=== PATIENT | male | born 1945 | race African-American/Black ===

== ENCOUNTER → 2016-05-21 | Outpatient (RCR) | payer OTHER | END | disposition home or self-care (01) | LOC: PTY 10:00 | DX: I73.9 Peripheral vascular disease, unspecified (principal); I10 Essential (primary) hypertension; E11.9 Type 2 diabetes mellitus without complications; I25.10 Atherosclerotic heart disease of native coronary artery without angina pectoris; Z95.1 Presence of aortocoronary bypass graft; Z85.46 Personal history of malignant neoplasm of prostate; Z90.79 Acquired absence of other genital organ(s); Z88.0 Allergy status to penicillin ==

== ENCOUNTER 2016-05-26 15:57 | Outpatient (RCR) | payer OTHER | END 2016-06-20 | disposition home or self-care (01) | LOC: PTY 15:57 | DX: I73.9 Peripheral vascular disease, unspecified (principal) ==

== ENCOUNTER 2016-06-21 14:36 | Outpatient (RCR) | payer OTHER | END 2016-07-21 | disposition home or self-care (01) | LOC: PTY 14:36 | DX: I73.9 Peripheral vascular disease, unspecified (principal) ==